=== PATIENT | male | born 1985 | race Caucasian/White ===

== ENCOUNTER 2021-05-28 15:10 | Emergency (ER) | payer OTHER ==
[~2021-05-28] VITALS: Ht 177.8 cm; Wt 84.2 kg
[2021-05-28 15:11] VITALS: BP 97/54
[2021-05-28] MEDS ORDERED: CELE20TA PO (15:18)
[2021-05-28] MEDS ORDERED: ROPI4TAB21 PO (15:19)
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
[2021-05-28] MEDS ORDERED: BOOSTRIX/ADACEL VACCINE (DIPHTH/PERTUSS/ACELL/TETANUS) 0.5ML SYR IM ONE (16:10)
[2021-05-28] MEDS ORDERED: IBUPROFEN 600MG TAB PO ONE (16:10)
[2021-05-28] MEDS ORDERED: cefTRIAXone SOD 1 GM in D5W MINI-BAG PLUS 50 ML IV ONE (16:10)
[2021-05-28] MEDS ORDERED: cefTRIAXone SOD 1GM VIAL (J0696 PER 250MG) IM ONE (16:30)
[2021-05-28] MEDS ORDERED: LIDOCAINE 1% SDV 5ML VIAL DILUENT ONE (16:30)
[2021-05-28] MEDS ORDERED: LIDOCAINE 1% MDV 20ML VIAL SC ONE (17:15)
[2021-05-28] MEDS ORDERED: CEPH500C PO (18:39)
== END 2021-05-28 18:45 | disposition home or self-care (01) ==
LOC: M ED 15:10
DX: S62.630B Displaced fracture of distal phalanx of right index finger, initial encounter for open fracture (principal); W23.1XXA Caught, crushed, jammed, or pinched between stationary objects, initial encounter; Y92.9 Unspecified place or not applicable; Y93.9 Activity, unspecified; Y99.9 Unspecified external cause status
CPT/HCPCS: 12001; 73140; 90471; 90715; 96372; 99282; J0696